=== PATIENT | female | born 1990 | race Caucasian/White ===

== ENCOUNTER 2022-07-06 13:34 | Emergency (ER) | payer OTHER, SELFPAY ==
[2022-07-06] VITALS (14 sets, daily range): BP systolic 104–121; BP diastolic 60–79; PULSE 78–98; RESP 12–23; TEMP 36.9; O2SAT 96–100
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
[2022-07-06] MEDS: ACETAMINOPHEN 500 MG TABLET 1000 MG PO (14:23)
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
== END 2022-07-06 15:50 | disposition home or self-care (01) ==
PROVIDERS: Emergency Provider Emergency Medicine; PCP Physician Assistant
DX: S33.8XXA Sprain of other parts of lumbar spine and pelvis, initial encounter (principal); S52.045A Nondisplaced fracture of coronoid process of left ulna, initial encounter for closed fracture; V86.65XA Passenger of 3- or 4- wheeled all-terrain vehicle (ATV) injured in nontraffic accident, initial encounter
CPT/HCPCS: 29105; 70450; 72125; 73080; 99284; A9270; L0140

== ENCOUNTER 2025-02-09 00:30 | Day surgery (SDC) | payer OTHER, SELFPAY ==
[2025-01-31 12:02] VITALS: BMI 27.9
[2025-02-09 06:47] VITALS: BP 100/53; PULSE 82; RESP 18; TEMP 36.3; O2SAT 98
[2025-02-09] MEDS: LACTATED RINGERS 1,000 ML 150 ML IV CONT (06:56)
--- NOTE | 2025-02-09 07:51 | P.PNAN_ITS ---
Anes - Initial Pre Proc Eval Procedure: Operation Date: 02/09/25 08:00 Proposed Procedures p Colonoscopy - Mauricio Tucker MD Date/Time: 02/09/25 07:51 Surgeon: Mauricio Tucker MD Pre Op Diagnosis: Personal history of other diseases of the digestiv Patient Data Age: 34 Gender: F Height: 1.8 m Weight: 90.9 kg Last Vital Signs Temp 97.4 F L 02/09/25 06:47 Pulse 82 02/09/25 06:47 Resp 18 02/09/25 06:47 BP 100/53 L 02/09/25 06:47 Pulse Ox 98 02/09/25 06:47 O2 Del Method Room Air 02/09/25 06:47 Allergies Allergy/AdvReac Type Severity Reaction Status Date / Time clavulanic acid Allergy Mild RASH Verified 02/09/25 06:46 Penicillins Allergy Mild RASH Verified 02/09/25 06:46 amoxicillin Allergy Unknown Unknown Verified 02/09/25 06:46 POTASSIUM CLAVULANATE Allergy Unknown Unknown Uncoded 02/09/25 06:46 Home Medications ?Medication ?Instructions ?Recorded ?Confirmed ?Type fluoxetine 10 mg capsule 30 mg PO DAILY 07/10/22 02/09/25 History lamotrigine 25 mg tablet 25 mg PO DAILY 07/08/23 02/09/25 History Patient hx anesthesia problems: none Family hx anesthesia problems: none Results Review: All pre-operative results and documents have been reviewed as part of the pre- operative evaluation. [facility] Past Medical History Medical History delivery delivered Bipolar 2 disorder Depression Fx coronoid proc ulna-closed Surgical History Surgical History H/O tubal ligation H/O gynecological procedure 2017 Paragard insertion Social History Social History Smoking status: Current every day smoker Tobacco type: cigarettes and e-cigarettes/vaping Alcohol intake: never Alcohol use details: occasional Substance use: current Substance use type: marijuana Other substance usage details: smokes marijuana a few times a week Current Housing: Decline to Answer Concerned About Future Housing: Decline to Answer Difficulty Paying Gas/Electric Bills: Decline to Answer Difficulty Paying for Meds: Decline to Answer Currently Unemployed: Decline to Answer Education: Decline to Answer Difficulty w/ Childcare or Family Care: Decline to Answer Living arrangements: with family Occupation/Education: other Additional occupation/education comments: stay at home mother Gender identity (if verbalized by the patient): Female Sexual Orientation (if Verbalized by the Patient): Straight or Heterosexual Spiritual care concerns: No Anes - Eval Final PreProcedure Day of Procedure 02/09/25 07:51 Patient weight: normal Heart: regular rate and rhythm Lungs: clear to auscultation Airway: Mallampati scale class II Neurological: alert and oriented Last oral intake: >/= 8 hours ASA classification: II Emergent: no Anesthetic plan: proceed Anesthesia type and monitoring: general GIVS and standard monitoring Results Review: All pre-operative results and documents have been reviewed as part of the pre- operative evaluation. Informed Consent: The patient's anesthetic plan and its attendant risks and benefits were discussed with the patient/family/POA. Questions were solicited and answers provided to the satisfaction of the patient/family/POA.
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
--- NOTE | 2025-02-09 08:19 | S_PTH ---
PATIENT: Yoko Archer LOC: [facility] #:[id number] AGE/SX: 34/F ROOM: RE02/09/[address]: Mauricio Tucker MD : 1990 BED: DIS: 02/09/2025 SPEC #: [id number] RECD: 02/09/25 09:42 STATUS: JOEY REAngelika #: [id number] ARYA: 02/09/25 08:[address]: Mauricio Tucker DEPT: [facility] Surgical RECD BY: Alecia Panda ENTERED: 02/09/25 09:43 SP TYPE: Surgical OTHR DR: Pete BarbosaRosalinda Tissues: A - Colon Biopsy B - Colon Biopsy C - Colon Biopsy Procedures: Hematoxylin and Eosin Stain Gross and Microscopic Level 4
[2025-02-09 08:22] VITALS: BP 96/60; PULSE 64; RESP 18; O2SAT 98
[2025-02-09 08:25] LABS: BEDSIDEPREGUCG Negative (Negative)
[2025-02-09 08:32] VITALS: BP 104/63; PULSE 78; RESP 17; O2SAT 100
[2025-02-09 08:42] VITALS: BP 107/71; PULSE 65; RESP 20; O2SAT 100
== END 2025-02-09 08:46 | disposition home or self-care (01) ==
PROVIDERS: PCP Internal Medicine Infectious Disease; Visit Provider Internal Medicine Gastroenterology
PROC: 0DJD8ZZ Inspection of Lower Intestinal Tract, Via Natural or Artificial Opening Endoscopic (ICD-10-PCS; CPT 45378; principal; 2025-02-09 08:00)
DX: R19.7 Diarrhea, unspecified (principal); K60.30 Anal fistula, unspecified; F17.210 Nicotine dependence, cigarettes, uncomplicated; F17.290 Nicotine dependence, other tobacco product, uncomplicated; F12.90 Cannabis use, unspecified, uncomplicated
CPT/HCPCS: 45380; 88305; J2003; J2704; J7120